=== PATIENT | female | born 1995 | race Caucasian/White ===

== ENCOUNTER 2021-02-27 08:52 | Inpatient (IN) | payer OTHER ==
[~2021-02-27] VITALS: Ht 152.4 cm; Wt 59.9 kg
[~2021-02-27 08:52] MED LIST: COLACE 100MG C100 MG PO; NORCO 5-325 TA1 EACH PO
[2021-02-27] MEDS ORDERED: PRENATAL VITAM1 EAC5 PO (09:43)
[2021-02-27] MEDS ORDERED: TYLENOL325 MG PO (09:44)
[2021-02-27 10:37] LABS: HEMOGLOBIN 11.2 gm/dl (12.3-15.3); RED BLOOD COUNT 4.62 M/UL (4.00-5.10); WHITE BLOOD COUNT 9.3 K/UL (4.5-11.0)
[2021-02-27] MEDS ORDERED: IBUPROFEN800 MG PO (11:48)
[2021-02-27] MEDS ORDERED: SOF-LAX100 MG PO (11:48)
[2021-02-28 06:09] LABS: HEMOGLOBIN 10.4 gm/dl (12.3-15.3)
== END 2021-02-28 14:44 | disposition home or self-care (01) | DRG 807 ==
LOC: GENOP 08:52 → OB 10:09
PROVIDERS: ADMIT Obstetrics & Gynecology
PROC: 10E0XZZ Delivery of Products of Conception, External Approach (ICD-10-PCS; principal; 2021-02-27)
PROC: 4A1HXCZ Monitoring of Products of Conception, Cardiac Rate, External Approach (ICD-10-PCS; 2021-02-27)
DX: O24.429 Gestational diabetes mellitus in childbirth, unspecified control (principal); Z37.0 Single live birth; Z3A.38 38 weeks gestation of pregnancy; Z91.040 Latex allergy status; O76 Abnormality in fetal heart rate and rhythm complicating labor and delivery; Z20.822 Contact with and (suspected) exposure to COVID-19
CPT/HCPCS: 36415; 82962; 85014; 85018; 85025; J2210; J2590; J2795; J3010; J7120; U0002